=== PATIENT | male | born 1985 | race African-American/Black ===

== ENCOUNTER 2024-08-24 01:06 | Emergency (ER) | payer BC ==
[~2024-08-24] VITALS: Ht 175.3 cm; Wt 198.2 kg
[2024-08-24 01:08] VITALS: PULSE 64; RESP 21; TEMP 97.9
[2024-08-24 02:58] VITALS: BP 128/62; PULSE 65; RESP 18; TEMP 98.5; O2SAT 96
== END 2024-08-24 03:10 | disposition home or self-care (01) ==
LOC: FSED 01:10
DX: R07.89 Other chest pain (principal); I10 Essential (primary) hypertension; E11.9 Type 2 diabetes mellitus without complications; E66.9 Obesity, unspecified
CPT/HCPCS: 71046; 84484; 93005; 99283